=== PATIENT | male | born 1990 | race Two or more races ===

== ENCOUNTER 2024-10-26 08:56 | Emergency (ER) | payer OTHER ==
[2024-10-26 09:01] VITALS: BP 121/65; PULSE 63; RESP 18; TEMP 98.5; BMI 28.0
== END 2024-10-26 10:14 | disposition home or self-care (01) ==
LOC: JERFT 08:56
DX: L72.3 Sebaceous cyst (principal); M79.89 Other specified soft tissue disorders
CPT/HCPCS: 99283-25